=== PATIENT | female | born 1935 | race Caucasian/White ===

== ENCOUNTER 2018-11-12 13:42 | Emergency (ER) | payer MEDICARE, OTHER ==
[~2018-11-12] VITALS: Ht 162.6 cm; Wt 54.1 kg
[2018-11-12 15:05] LABS: CLARITY,URINE CLOUDY (Clear); COLOR,URINE YELLOW (Yellow); GLUCOSE, URINE NEGATIVE (Neg); KETONES,URINE NEGATIVE (Neg); LEUKOCYTE ESTERASE ,URINE LARGE (Neg); NITRITES, URINE POSITIVE (Neg); OCCULT BLOOD,URINE TRACE-INTACT (Neg); PH,URINE 5.5 (4.8-8.0); PROTEIN,URINE NEGATIVE (Neg); UA COLLECTION TYPE VOIDED; UROBILINOGEN,URINE 0.2 E.U/dL (0.2-1.0)
[2018-11-12 15:18] LABS: URINE AMPHETAMINE SCREEN NEGATIVE (Neg); URINE BARBITUATE SCREEN NEGATIVE (Neg); URINE BENZODIAZEPINES SCREEN NEGATIVE (Neg); URINE CANNABINOID SCREEN NEGATIVE (Neg); URINE COCAINE SCREEN NEGATIVE (Neg); URINE METHADONE SCREEN NEGATIVE (Neg); URINE OPIATE SCREEN NEGATIVE (Neg); URINE PHENCYCLIDINE SCREEN NEGATIVE (Neg)
[2018-11-12 15:18] LABS: ALANINE AMINOTRANSFERASE 27 U/L (12-78); ALBUMIN 3.7 G/DL (3.4-5.0); ALBUMIN/GLOBULIN RATIO 0.9 (1.1-1.5); ALKALINE PHOSPHATASE 92 IU/L (46-116); ANION GAP 13 (8-16); ASPARTATE AMINO TRANSFERASE 39 U/L (10-37); BILIRUBIN,TOTAL 0.5 MG/DL (0.1-1.0); BLOOD UREA NITROGEN 24 MG/DL (7-18); BUN/CREATININE RATIO 31.2 (6.6-38.0); CALCIUM 8.9 MG/DL (8.5-10.1); CHLORIDE 99 MMOL/L (99-107); CREATININE 0.77 MG/DL (0.40-0.90); GLUCOSE 101 MG/DL (70-104); POTASSIUM 3.7 MMOL/L (3.5-5.1); SODIUM 136 MMOL/L (135-145); TOTAL CARBON DIOXIDE 23.8 MMOL/L (24-32); TOTAL PROTEIN 7.9 G/DL (6.4-8.2); eGFR 72 ML/MIN
[2018-11-12 15:25] LABS: ETHANOL < 0.010 GM/DL (0.0-0.010)
[2018-11-12 15:28] LABS: BACTERIA,URINE 3+ /HPF (Neg); MUCUS STRANDS MODERATE /LPF (Neg); RBC,URINE 0-2 /HPF (0-2); SQUAMOUS EPITHELIAL CELL,UR MODERATE /LPF (FEW); WBC,URINE TNTC /HPF (0-4)
[2018-11-12 15:29] LABS: WBC CLUMPS,URINE MODERATE /HPF (NEGATIVE)
[2018-11-12 15:32] LABS: BASOPHILS # (AUTO) 0.1 X10'3 (0-0.2); BASOPHILS % (AUTO) 0.6 % (0-1); EOSINOPHILS # (AUTO) 0.1 X10'3 (0-0.9); EOSINOPHILS % (AUTO) 1.4 % (0-6); HEMATOCRIT 41.5 % (35.0-45.0); HEMOGLOBIN 13.6 g/dl (12.0-16.0); LYMPHOCYTES # (AUTO) 1.8 X10'3 (1.1-4.8); LYMPHOCYTES % (AUTO) 20.8 % (21-51); MEAN CORPUSCULAR HEMOGLOBIN 28.3 PG (27.0-31.0); MEAN CORPUSCULAR HGB CONC 32.9 g/dL (33.0-36.5); MEAN PLATELET VOLUME 10.3 FL (7.4-10.4); MONOCYTES # (AUTO) 0.7 X10'3 (0-0.9); MONOCYTES % (AUTO) 8.6 % (2-12); NEUTROPHILS # (AUTO) 5.7 X10'3 (1.8-7.7); NEUTROPHILS % (AUTO) 68.6 % (42-75); PLATELET COUNT 236 X10'3 (140-440); RED BLOOD COUNT 4.82 X10'6 (4.20-5.60); RED CELL DISTRIBUTION WIDTH 13.4 % (11.5-14.5); WHITE BLOOD COUNT 8.4 X10'3 (4.5-11.0)
[2018-11-12] MEDS ORDERED: normal saline 1000ML IV soln IV ONE (17:50)
[2018-11-12] MEDS ORDERED: CefTRIAXone 2gm/D5W 50ml 50 ML IV ONE (17:50)
--- NOTE | 2018-11-12 19:14 | NUR ---
Telepsych consult initiated, spoke with "Lesli"
--- NOTE | 2018-11-12 19:18 | NUR ---
Up to BRP with family.
[2018-11-12 19:28] VITALS: BP 152/94
--- NOTE | 2018-11-12 20:18 | NUR ---
Rec'd call from telepsych doctor, report endorsed.
[2018-11-12] MEDS ORDERED: CEPH500C5 PO (21:32)
--- NOTE | 2018-11-12 21:32 | NUR ---
[facility] report given to ERP
== END 2018-11-12 22:04 | disposition home or self-care (01) ==
LOC: ER 13:44
DX: N39.0 Urinary tract infection, site not specified (principal); F22 Delusional disorders; R41.0 Disorientation, unspecified
CPT/HCPCS: 36415; 70450; 80053; 80305; 80320; 81001; 84443; 85025; 87077; 87088; 96365; 99284; J0696; J7030

== ENCOUNTER 2018-11-14 14:42 | Emergency (ER) | payer MEDICARE, OTHER ==
[~2018-11-14] VITALS: Ht 162.6 cm; Wt 54.9 kg
[~2018-11-14 14:42] MED LIST: CEPH500C5 PO
[2018-11-14 14:49] VITALS: BP 151/63
[2018-11-14] MEDS ORDERED: QUET25TA PO (18:01)
== END 2018-11-14 18:22 | disposition home or self-care (01) ==
LOC: ER 14:42
DX: R44.3 Hallucinations, unspecified (principal); N39.0 Urinary tract infection, site not specified; F41.9 Anxiety disorder, unspecified; Z79.899 Other long term (current) drug therapy
CPT/HCPCS: 99284

== ENCOUNTER 2018-11-16 10:25 | Emergency (ER) | payer MEDICARE, OTHER ==
[~2018-11-16] VITALS: Ht 162.6 cm; Wt 47.0 kg
[~2018-11-16 10:25] MED LIST changes: +QUET25TA PO
--- NOTE | 2018-11-16 10:54 | NUR ---
AMBULATED TO ROOM WITH MARKO SAUCEDA AT HER SIDE. PATIENT A&OX4 BUT STATES HER MEMORY ISN'T GOOD IT ONCE ONES. SONS STATE SHE HASN'T BEEN EATING. PATIENT GIVEN FOOD AND STATES SHE WILL EAT IT.
--- NOTE | 2018-11-16 11:03 | NUR ---
telepsych contacted, cart 2 at bedside.
--- NOTE | 2018-11-16 11:21 | NUR ---
telepsyche in progress
[2018-11-16 11:26] LABS: BASOPHILS # (AUTO) 0.2 X10'3 (0-0.2); BASOPHILS % (AUTO) 1.7 % (0-1); EOSINOPHILS # (AUTO) 0.1 X10'3 (0-0.9); EOSINOPHILS % (AUTO) 0.9 % (0-6); HEMATOCRIT 42.2 % (35.0-45.0); HEMOGLOBIN 13.7 g/dl (12.0-16.0); LYMPHOCYTES # (AUTO) 1.3 X10'3 (1.1-4.8); MEAN CORPUSCULAR HEMOGLOBIN 28.4 PG (27.0-31.0); MEAN CORPUSCULAR HGB CONC 32.6 g/dL (33.0-36.5); MEAN PLATELET VOLUME 9.1 FL (7.4-10.4); MONOCYTES # (AUTO) 0.8 X10'3 (0-0.9); MONOCYTES % (AUTO) 7.9 % (2-12); NEUTROPHILS % (AUTO) 76.5 % (42-75); PLATELET COUNT 250 X10'3 (140-440); RED BLOOD COUNT 4.84 X10'6 (4.20-5.60); RED CELL DISTRIBUTION WIDTH 13.5 % (11.5-14.5); WHITE BLOOD COUNT 10.4 X10'3 (4.5-11.0)
[2018-11-16 11:41] LABS: ALANINE AMINOTRANSFERASE 21 U/L (12-78); ALBUMIN 3.4 G/DL (3.4-5.0); ALBUMIN/GLOBULIN RATIO 0.8 (1.1-1.5); ALKALINE PHOSPHATASE 85 IU/L (46-116); ANION GAP 10 (8-16); ASPARTATE AMINO TRANSFERASE 27 U/L (10-37); BILIRUBIN,TOTAL 0.5 MG/DL (0.1-1.0); BLOOD UREA NITROGEN 22 MG/DL (7-18); BUN/CREATININE RATIO 27.2 (6.6-38.0); CALCIUM 8.7 MG/DL (8.5-10.1); CHLORIDE 104 MMOL/L (99-107); CREATININE 0.81 MG/DL (0.40-0.90); ETHANOL < 0.010 GM/DL (0.0-0.010); GLUCOSE 117 MG/DL (70-104); POTASSIUM 3.7 MMOL/L (3.5-5.1); SODIUM 140 MMOL/L (135-145); TOTAL CARBON DIOXIDE 25.8 MMOL/L (24-32); TOTAL PROTEIN 7.6 G/DL (6.4-8.2); eGFR 68 ML/MIN
--- NOTE | 2018-11-16 12:55 | NUR ---
teleneuro consult called per Dr. Mcpherson. Cart 2 at bedside.
[2018-11-16] MEDS ORDERED: NO HOME MEDS (14:28)
--- NOTE | 2018-11-16 15:19 | NUR ---
Teleneuro in progress. Assited MD. Patient's family at bedside.
[2018-11-16] MEDS ORDERED: divalproex sod 125mg sprinkle cap PO STA (15:42)
[2018-11-16] MEDS ORDERED: LORazepam 2 mg/ml vial IV ONE (16:40)
--- NOTE | 2018-11-16 16:52 | NUR ---
PATIENT TO MRI.
[2018-11-16 16:56] LABS: CLARITY,URINE TURBID (Clear); COLOR,URINE YELLOW (Yellow); GLUCOSE, URINE NEGATIVE (Neg); KETONES,URINE 15 mg/dl (Neg); LEUKOCYTE ESTERASE ,URINE TRACE (Neg); NITRITES, URINE NEGATIVE (Neg); OCCULT BLOOD,URINE TRACE-INTACT (Neg); PH,URINE 5.5 (4.8-8.0); PROTEIN,URINE NEGATIVE (Neg); UROBILINOGEN,URINE 0.2 E.U/dL (0.2-1.0)
[2018-11-16 16:58] LABS: UA COLLECTION TYPE CLN CATCH MIDSTREAM
[2018-11-16 17:06] LABS: URINE AMPHETAMINE SCREEN NEGATIVE (Neg); URINE BARBITUATE SCREEN NEGATIVE (Neg); URINE BENZODIAZEPINES SCREEN NEGATIVE (Neg); URINE CANNABINOID SCREEN NEGATIVE (Neg); URINE COCAINE SCREEN NEGATIVE (Neg); URINE METHADONE SCREEN NEGATIVE (Neg); URINE OPIATE SCREEN NEGATIVE (Neg); URINE PHENCYCLIDINE SCREEN NEGATIVE (Neg)
[2018-11-16 17:19] LABS: SQUAMOUS EPITHELIAL CELL,UR MANY /LPF (FEW)
[2018-11-16 17:21] LABS: BACTERIA,URINE NONE SEEN /HPF (Neg); MUCUS STRANDS MANY /LPF (Neg); RBC,URINE 0-2 /HPF (0-2)
[2018-11-16 17:22] LABS: AMORPHOUS URATES 4+; CAL OXALATE CRYSTALS 1+ /HPF (NEGATIVE)
[2018-11-16] MEDS: divalproex sod 125mg sprinkle cap PO SCH (17:30)
--- NOTE | 2018-11-16 17:35 | NUR ---
PATIENT BACK FROM MRI. PATIENT VERY SEDATED FROM ATIVAN ADMINISTRATION. PATIENT TOLERATED MRI WELL. PATIENT PLACED ON 2 L NC DUE TO DESAT TO LOW 90% RA. PATIENT'S SPO2 IMPROVED TO 99% 2LNC.
--- NOTE | 2018-11-16 20:42 | NUR ---
FAMILY (SONS) TOOK PT'S GREEN PURSE HOME.
[2018-11-16] MEDS: QUEtiapine 25mg tablet PO SCH (20:56)
--- NOTE | 2018-11-16 21:39 | NUR ---
SLEEPING AFTER RECEIVING ATIVAN FOR MRI.
--- NOTE | 2018-11-16 23:28 | NUR ---
PT AWAKENED, AKSING WHAT TIME AND WHERE FAMILY IS WELL WHAT THE PLAN IS FOR HER. RE ORIENTED AND TOLD THAT [facility] WILL SEE HER IN AM.
--- NOTE | 2018-11-16 23:43 | NUR ---
UP AMB TO BR WITH ASSIST, PAL[place] WELL.
--- NOTE | 2018-11-17 01:22 | NUR ---
covered the patient up with 3 blankets as she was cool. She asked for her family. Told her it was 0130 and that everyone is sleeping. She understood. Encouraged her to sleep
--- NOTE | 2018-11-17 03:50 | NUR ---
Pt awake, took her to the bathroom to void and back to bed, tucked in. Oriented to time.
--- NOTE | 2018-11-17 05:42 | NUR ---
pt remains asleep
[2018-11-17] MEDS ORDERED: haloperidol lactate 5mg/ml inj IM ONE (08:25)
[2018-11-17] MEDS ORDERED: haloperidol lactate 5mg/ml inj ONE (08:28)
[2018-11-17] MEDS: divalproex sod 125mg sprinkle cap PO SCH ×3 (08:30→17:30)
--- NOTE | 2018-11-17 09:17 | NUR ---
pt was not cooperating while being transported in wheelchair and tired to jump out of wheelchair. pt taken to overflow
--- NOTE | 2018-11-17 10:30 | NUR ---
Received pt for admission from the Emergency Department. Pt is a 82 yo pt admitted with Dementia & Psychosis. Report given by DANGELO Grubbs who informed pt was brought into the Emergency Room by the pts sons (Kaylen & Ismael), who have been experiencing pt being a high elopement risk. Pt lives at home with her son Kaylen who is her primary caregiver. Pt received Ativan in the ER and Haldol 10mg IM approximately 20 minutes ago. Pt pulled out IV in the ER. This is pts 2nd visit to the ED (11/12 & 11/17). Humera reports pt grabs name tags off nurse's uniforms. Pt is on a regular diet, had a MRI Head, & Tele Psych Consult. Pts son Kaylen and pts brother (lives in the [place]) arrived to the ER at 1100 to meet with the pt at bedside. Will continue to assess and monitor dc needs.
--- NOTE | 2018-11-17 11:00 | NUR ---
Pts son Porter ([phone]) arrived to visit with his mom. Spoke with Ismael regarding recent attempts by pt for elopement from her home while her son was home caring for her. Ismael lives in [place], [place], and flew in yesterday when pt was here on obs and overnight stay to determine pt needs for services. Met with Cheyanne Null, Director, HIM, who brought down a medical record release for pt to sign so that son could get copies of H&P and Tele Neuro Consult and get Power of Waiter/Waitress Tourist Class to be able to have pt move near him in [place]. Pt interviewed by Cheyanne, and she refused to sign Medical Release of Records at this time. Pt states "I've signed things before for people and I won't do it again. Spoke with Ismael that he has an appointment with their area counselor in the morning at 11:00, and needs pt to sign these forms. Rajesh Cobos, Director of ED of son's information and attempt to have pt sign Medical Release with pts denial to sign at this time.
--- NOTE | 2018-11-17 11:24 | NUR ---
pt is talking with geriatric social work professor, with her son present, calm no s/s of distress
--- NOTE | 2018-11-17 11:33 | NUR ---
Tia with web content & social media manager just finished speaking with family and pt, she is working on setting up services for a career development engineer in her home, she will need a telepsych 'tatianna recommendation that she needs care due to dementia and also a chart note from ER doctor stating that she has dementia, the ER note does state this...son needs these documents to obtain POA for her finances. Chandrika, RN in charge of ER was present and is aware of patients issues
--- NOTE | 2018-11-17 17:25 | NUR ---
Pt's son Porter, son Kaylen, and pts brother here at pts bedside to get update on pt status, as well as approach pt regarding signature of Medical Record Release for Medical Care so pts son can make transportation arrangements and take over medical care for the patient to receive services now and in the future. Pts brother spoke to her at length, with pt continued to refused to sign Medical Release Form.
--- NOTE | 2018-11-17 19:33 | NUR ---
pt is sitting quietly with friend who is reading to her. pt refused depakote until tomorrow morning.
--- NOTE | 2018-11-17 20:28 | NUR ---
pt's friend Aysha left, pt is sleeping, rr 15, unlabored.
[2018-11-17] MEDS: QUEtiapine 25mg tablet PO SCH (21:00)
--- NOTE | 2018-11-17 21:11 | NUR ---
pt refused seroquel. pt is now sleeping on back. unlabored rr.
--- NOTE | 2018-11-17 22:01 | NUR ---
pt awakened for 5 minutes, was confused about where she was. reoriented pt and pt is now sleeping.
--- NOTE | 2018-11-17 22:30 | NUR ---
pt is awake and confused about where she is. pt is asking to make a phone call but I explained it's too late and to rest. pt is sitting up in bed now.
--- NOTE | 2018-11-17 23:23 | NUR ---
pt is sleeping on her back. rr 14, unlabored.
--- NOTE | 2018-11-18 05:15 | NUR ---
she is awake but quiet
--- NOTE | 2018-11-18 06:52 | NUR ---
patient awake, calm and lying in bed, respirations even, no distress, will continue to monitor.
--- NOTE | 2018-11-18 08:16 | NUR ---
patient up and ambulated safely with assistance to bathroom, no signs of distress, will continue to monitor.
[2018-11-18] MEDS: divalproex sod 125mg sprinkle cap PO SCH ×4 (08:30→20:51)
--- NOTE | 2018-11-18 08:45 | NUR ---
Spoke to patient regarding medical release form. patient states she does not want to sign because she is "afraid they will be mean to her." will continue to monitor.
--- NOTE | 2018-11-18 10:24 | NUR ---
patient currently asking where son is, states he is supposed to visit this am. patient calm, no signs of distress. will continue to monitor.
--- NOTE | 2018-11-18 11:30 | NUR ---
patient resting in bed, respirations even and unlabored. no signs of distress.
--- NOTE | 2018-11-18 12:40 | NUR ---
patient's son, Ismael, arrived, to speak with patient. Ismael states he found papers that appoint him POA for this patient. viscosity worker notified, along with the [facility] mental health worker.
--- NOTE | 2018-11-18 13:00 | NUR ---
Patient's other son, Kaylen, arrived. Patient's son, Ismael, spoke with social work therapist this afternoon as well as delma [facility] mental health worker.
--- NOTE | 2018-11-18 14:13 | NUR ---
Dr. Ferrari in to visit this patient to evaluate her.
--- NOTE | 2018-11-18 15:59 | NUR ---
Patient resting comfortably with brother at bedside, no signs of distress noted. patient calm.
--- NOTE | 2018-11-18 17:00 | NUR ---
Patient resting with son now at bedside, requested water for her haddad, no signs of distress, pt calm and pleasant.
--- NOTE | 2018-11-18 19:00 | NUR ---
The patient is resting on her bed her friend is at the bedside visiting with her and attempting to encourage her to eat. She is calm and pleasant when approached. She stated she is doing "so so. I get scared a lot" She was able to accuratelys state the month and year. She reports she has not been sleeping at home well and her appetite is also poor. She also stated that her concentration has been poor as well.
--- NOTE | 2018-11-18 20:28 | NUR ---
DAWOOD DAUGHTER PHONE NUMBER IS [phone] ASKED PT IF WE COULD GIVE HER INFO. PT SAID YES THAT WAS OK.
[2018-11-18] MEDS: QUEtiapine 25mg tablet PO SCH (20:49)
--- NOTE | 2018-11-18 22:25 | NUR ---
The patient currently appears to be asleep.
--- NOTE | 2018-11-19 00:08 | NUR ---
The patient is up wandering around and is disoriented to time and place.
[2018-11-19] MEDS ORDERED: LORazepam 2 mg/ml vial IM ONE (00:20)
--- NOTE | 2018-11-19 00:31 | NUR ---
Patient up walking in the hallway with staff when she suddenly bolted for the exit door. Numerous staff had to assist in getting her back to the unit. She was yelling and throwing objects that she could reach. Once back on the unit she calmed down fairly rapidly and was sitting calmly on her bed eating a snack. She pleaded not to have medication. Ativan ordered held at this time and was made aware. When asked what she was trying to do she stated that she did not know but that she was somewhat confused and was wanting to go home. Several attempts were made to move her to a less light and a quieter area of the ER but she has repeatedly declined.
--- NOTE | 2018-11-19 01:26 | NUR ---
The patient slept for a brief period but awakened and was gathering her items up and wanting to share her roses with peers who are sleeping. She was redirected. She was made aware of the time. She currently is on her bed reading magazines.
--- NOTE | 2018-11-19 02:27 | NUR ---
The patient began to wonder towards the exit and staff immediately went to redirect her and she became resistive to redirection and as she was passing the fire alarm she pulled the alarm. She then picked up a water pitcher with roses and threw it on the floor causing a large water spill. As staff was holding on to her so she would not slip in the water she crabbed a fire extinquisher hanging on the wall and threw it on the floor. IM ativan given that was ordered earlier
--- NOTE | 2018-11-19 03:00 | NUR ---
The patient appears to be asleep and currently is one to one with a staff member
--- NOTE | 2018-11-19 04:08 | NUR ---
The patient remains one to one with staff. She appears to be asleep
--- NOTE | 2018-11-19 05:14 | NUR ---
The patient currently appears to be sleeping
--- NOTE | 2018-11-19 08:05 | NUR ---
PATIENT'S SON, TALIB, CALLED FROM [place] FOR CONDITION REPORT. STATES HE FILED THE NECESSARY PAPERWORK FOR POA AND IS WAITING FOR COURT DECISION. STATES THAT HIS PLAN IS TO TAKE HIS MOTHER TO [place] TO LIVE WITH HIM, ONCE POA IS APPROVED BY COURT.
[2018-11-19] MEDS: divalproex sod 125mg sprinkle cap PO SCH ×4 (08:30→17:30)
--- NOTE | 2018-11-19 09:13 | NUR ---
BROTHER AT THE BEDSIDE. PATIENT IS UNCOOPERATIVE AND REFUSES MORNING DOSE OF DEPAKOTE SPRINKLES, STATING THAT IT IS BURNING HER MOUTH. CALMLY CONVERSATING WITH BROTHER.
--- NOTE | 2018-11-19 12:40 | NUR ---
UP WALKING AROUND ON UNIT WITH NURSE SUPERVISING. CALM AND COOPERATIVE AT PRESENT.
--- NOTE | 2018-11-19 13:16 | NUR ---
RELIEVING RN FOR LUNCH, PT IS RESTING QUIETLY ON BED, EATING LUNCH
--- NOTE | 2018-11-19 14:40 | NUR ---
PATIENT ALERT AND COOPERATIVE. MADE TC TO FRIEND, DAWOOD. NO DISTRESS NOTED AT THIS TIME.
--- NOTE | 2018-11-19 16:40 | NUR ---
BROTHER HERE TO VISIT. QUIET CONVERSATION BETWEEN PATIENT AND VISITOR. NO DISTRESS NOTED.
--- NOTE | 2018-11-19 17:50 | NUR ---
RESTING IN BED WITH SON AT THE BEDSIDE. CALM AND COOPERATIVE. CONDITION UNCHANGED FROM EARLIER ASSESSMENT.
--- NOTE | 2018-11-19 19:00 | NUR ---
Pt. sitting in bed, pleasant and animated, rr even and unlabored. Currently visiting with a friend.
--- NOTE | 2018-11-19 19:50 | NUR ---
Pt. helped to ambulate to the BR with the assistance of her friend and one staff member. Gait is steady, no c/o urinary frequency or pain.
[2018-11-19] MEDS: nitrofuran/nitrofuran macrocrysal 100 MG capsule PO SCH (20:10)
[2018-11-19] MEDS: QUEtiapine 25mg tablet PO SCH (20:10)
--- NOTE | 2018-11-19 20:30 | NUR ---
Pt. compliant with all medications this shift per encouragement from her friend. Medication education provided by this verse writer and pt. voices understanding. She accepted HS snack of applesauce with her ABT per UTI as ordered. Pt. presents as A&O, and admits that she does not remember a lot about her recent episode of confusion, but she realizes she made some poor choices during it. She denies any S/I, H/I, depression, or anxiety at this time. She is willing to go live with her son in [place] after he has everything in place for her. This verse writer ensured pt. of her safety and that staff would be with her all night, pt. resting comfortably at this time.
--- NOTE | 2018-11-19 21:13 | NUR ---
Pt. asleep on her back, HOB elevated, rr even and ulabored.
--- NOTE | 2018-11-19 23:05 | NUR ---
Pt. continues to sleep on her back with HOB elevated, appears to be resting comfortably
--- NOTE | 2018-11-20 01:03 | NUR ---
Pt. sleeping, rr even and unlabored, will continue to moitor.
--- NOTE | 2018-11-20 03:06 | NUR ---
Pt. sleeping on her rt. side at this time, will continue to monitor.
--- NOTE | 2018-11-20 05:05 | NUR ---
Pt. sleeping on her right side, rr even and unlabored.
--- NOTE | 2018-11-20 06:41 | NUR ---
Nursing Note: Pt laying on R side, eyes open, respirations even and unlabored, no S&S of distress.
[2018-11-20] MEDS: nitrofuran/nitrofuran macrocrysal 100 MG capsule PO SCH ×2 (08:06→20:13)
[2018-11-20] MEDS: divalproex sod 125mg sprinkle cap PO SCH ×3 (08:06→17:38)
--- NOTE | 2018-11-20 08:33 | NUR ---
Nursing Note: Pt sitting up to eat breakfast. She was compliant with medication administration. She requested phone to call her friend. She was able to provide phone number to call the friend. No S&S of distress, will continue to monitor.
--- NOTE | 2018-11-20 09:10 | NUR ---
Nursing Note: Pt's son called and spoke with pt. Pt calm with no signs of distress while speaking with son. Will continue to monitor.
--- NOTE | 2018-11-20 09:29 | NUR ---
Nursing Note: Pt sitting in bed reading a book. She is oriented to name and birthdate. She states she is at the "head place" and it is "1900." She is unable to say why she is here. She is cooperative and calm. Will continue to monitor.
--- NOTE | 2018-11-20 11:28 | NUR ---
Nurses Note: Pt laying in bed with her son at the bedside. Encouraged pt to get up to the restroom, she declined. No S&S of distress, will continue to monitor. Addendum: 11/20/18 at 1554 by PBROWN Amend: Pt's brother is at the bedside, not the pt's son.
--- NOTE | 2018-11-20 11:40 | NUR ---
Nursing Note: Pt up to [facility], assisted by her son and this tag writer. Pt's gait is mildly unsteady. Will continue to monitor. Addendum: 11/20/18 at 1555 by PBROWN Amend: The visitor was the pt's brother not the pt's son.
--- NOTE | 2018-11-20 13:23 | NUR ---
Nursing Note: Pt sitting up in bed reading a book. She was compliant with medication administration. No S&S of distress, will continue to monitor.
--- NOTE | 2018-11-20 14:01 | NUR ---
Nursing Note: Received phone call from Lacey Hannon who states she is the daughter of the pt's friend Karen Rascon. Asked pt if she would like to speak to the caller and the pt does not know who Karen Tarah or Lacey Hannon are. Caller left phone number for Karen Rascon [phone]. Will continue to monitor.
--- NOTE | 2018-11-20 14:49 | NUR ---
Nursing Note: Pt laying in bed reading a book. No S&S of distress, respirations even and unlabored, no S&S of distress. Will continue to monitor.
--- NOTE | 2018-11-20 15:43 | NUR ---
Nursing Note: Pt laying in bed with family member at the bedside. No S&S of distress, will continue to monitor.
--- NOTE | 2018-11-20 17:11 | NUR ---
Nursing Note: Pt laying in bed visiting with her brother at her bedside. No S&S of distress, will continue to monitor.
[2018-11-20] MEDS: QUEtiapine 25mg tablet PO SCH (20:14)
--- NOTE | 2018-11-21 01:15 | NUR ---
Pt awake in bed, reading a book quietly. No requests or c/o at this time. NAD.
--- NOTE | 2018-11-21 06:28 | NUR ---
Nursing Note: Pt laying in bed with eyes closed, appears asleep, respirations even and unlabored, no S&S of distress, will continue to monitor.
[2018-11-21] MEDS: divalproex sod 125mg sprinkle cap PO SCH ×3 (08:20→17:32)
[2018-11-21] MEDS: nitrofuran/nitrofuran macrocrysal 100 MG capsule PO SCH ×2 (08:20→20:17)
--- NOTE | 2018-11-21 09:59 | NUR ---
Nursing Note: Pt oriented A&Ox4. Encouraged pt to drink fluids. Pt sitting up reading a book. No S&S of distress, will continue to monitor.
--- NOTE | 2018-11-21 11:37 | NUR ---
Nursing Note: Pt laying in bed talking on the telephone. No S&S of distress, will continue to monitor.
--- NOTE | 2018-11-21 13:15 | NUR ---
Nursing Note: Pt sitting up in bed to eat lunch. She was compliant with medication administration. No S&S of distress, will continue to monitor.
--- NOTE | 2018-11-21 15:35 | NUR ---
Nursing Note: Pt laying in bed with visitor at bedside. No S&S of distress, will continue to monitor.
--- NOTE | 2018-11-21 18:13 | NUR ---
Nursing Note: Pt's son, Ismael called, pt gave permission for this administrative underwriter to talk to pt. Pt now talking to son on phone. No S&S of distress, will continue to monitor.
[2018-11-21] MEDS: QUEtiapine 25mg tablet PO SCH (20:18)
--- NOTE | 2018-11-22 02:45 | NUR ---
pt awake reading newspaper, and at nurses station
[2018-11-22] MEDS: nitrofuran/nitrofuran macrocrysal 100 MG capsule PO SCH ×2 (08:35→20:12)
[2018-11-22] MEDS: divalproex sod 125mg sprinkle cap PO SCH ×3 (08:35→17:31)
--- NOTE | 2018-11-22 09:43 | NUR ---
Pt. was on her way to the bathroom when the staff lowered the toilet seat which made a loud noise. Pt. got scared and refused to go into the bathroom.
--- NOTE | 2018-11-22 11:36 | NUR ---
Pt. lying supine with even and unlabored respirations. Spoke with son earlier on the phone.
--- NOTE | 2018-11-22 13:05 | NUR ---
Pt. son visiting.
--- NOTE | 2018-11-22 15:34 | NUR ---
Pt. yelling, picked up her water pitcher that was filled with juice and dropped in on the floor. Pt. seemed to become anxious when another pt. in bed 23 started to act up and needed security.
--- NOTE | 2018-11-22 16:21 | NUR ---
Pt. has two female visitors at this time. Pt. immediately calmed down when they arrived.
[2018-11-22] MEDS: QUEtiapine 25mg tablet PO SCH (20:12)
--- NOTE | 2018-11-22 20:40 | NUR ---
pt denies sucidal ideation. pt denies homicidal ideation. pt denies auditory hallucinations. will continue to monitor.
--- NOTE | 2018-11-22 22:36 | NUR ---
pt resting in bed, eyes closed. no signs of distress. will continue to monitor.
--- NOTE | 2018-11-23 02:13 | NUR ---
pt laying on her right side. she is reading her book. no signs of distress. calls nurse over at times to ask questions. will continue to monitor.
--- NOTE | 2018-11-23 04:54 | NUR ---
pt in bed resting, eyes closed. no signs of distress. unlabored and even respirations. will continue to monitor.
--- NOTE | 2018-11-23 07:30 | NUR ---
Pt. was awake at shift change this morning. Pt. is calm and looking through magazines.
[2018-11-23] MEDS: nitrofuran/nitrofuran macrocrysal 100 MG capsule PO SCH ×2 (08:06→20:21)
[2018-11-23] MEDS: divalproex sod 125mg sprinkle cap PO SCH ×3 (08:06→17:08)
--- NOTE | 2018-11-23 10:16 | NUR ---
Gladys business case analyst called. States she will have a naval surface fire support planner come and fax the requested medical records to the prison family has arranged for pt. to go to eventually.
--- NOTE | 2018-11-23 10:20 | NUR ---
Son at bedside.
--- NOTE | 2018-11-23 14:43 | NUR ---
Spa Attendant Gladys Mcghee called with update: Pt's son needs to contact pt's PMD to have the requested forms filled out that the halfway is requesting.
--- NOTE | 2018-11-23 15:21 | NUR ---
RN asked Dr. Rodriges to fill out required paperwork for pt.'s new half-way. CXR being obtained now to r/o TB as a PPD skin test would take 48 hours to process/read.
[2018-11-23] MEDS ORDERED: tuberculin, purif. prot. deriv. 5 units/0.1ml ID ONE (16:00)
--- NOTE | 2018-11-23 16:39 | NUR ---
PPD skin test administered to pt's LFA at [address] Rodriges's order.
--- NOTE | 2018-11-23 18:29 | NUR ---
Patient is sitting up on side of bed eating dinner w/o problem. She seems confused, but pleasant and her son is at the bedside. I will continue to monitor.
[2018-11-23] MEDS: QUEtiapine 25mg tablet PO SCH (20:21)
--- NOTE | 2018-11-24 03:22 | NUR ---
Patient continues to sleep for short periods of time and then wake up restless. She is confused and needs reorientation frequently. At times she either asks for her son or wants to call him. I will continue to monitor.
[2018-11-24] MEDS: nitrofuran/nitrofuran macrocrysal 100 MG capsule PO SCH ×2 (07:13→19:29)
[2018-11-24] MEDS: divalproex sod 125mg sprinkle cap PO SCH ×3 (07:13→17:25)
[2018-11-24] MEDS ORDERED: ROPIVAcaine 0.5% (5mg/ml) 30ml vial ONE (08:42)
[2018-11-24] MEDS ORDERED: ketorolac trometh. 30mg/ml inj. ONE (08:43)
--- NOTE | 2018-11-24 15:46 | NUR ---
THIS MORNING WENT WITH CAROLINE DANG, TO SEE PATIENT'S SON, JAMIE. JAMIE HAS BEEN STAYING AT PATIENT'S HOME CG. HE HAS HIS OWN HOME, AND STATES THAT HE CANNOT CONTINUE TO TAKE CARE OF PATIENT 21/04. PATIENT'S OTHER SON, LISY, LIVES IN [place], AND IS ATTEMPTING TO GET PATIENT PLACED IN ASSISTED LIVING THERE. PER JAMIE, IT IS CALLED [facility]. INTERNET SEARCH SHOWS IT IS [facility] AND HAS [facility]. THE FACILITY IS ASKING FOR TB CLEARANCE. PPD PLACED 11/23 AT 1628PM. IT CAN BE READ 11/25 AT 1628. PER JAMIE, LISY IS COMING TOMORROW, AND MAY BE PICKING UP PATIENT. CAROLINE, ALTON INVOLVED WITH COMMUNICATING WITH LISY.
--- NOTE | 2018-11-24 18:51 | NUR ---
GAVE REPORT TO DANGELO NORTH
--- NOTE | 2018-11-24 19:53 | NUR ---
PATIENT RESTING IN BED IN HALLWAY WITH DAUGHTER AT BEDSIDE. PATIENT GIVEN 1999 ANTIBIOTIC PO MEDICATION. 2099 SEROQUEL TO BE GIVEN SHORTLY. RECEIVED IN REPORT FROM DAY SHIFT RN THAT PATIENT REFUSED 1730 DEPAKOTE. PATIENT COMPLIANT WITH 1999 MEDICATION ADMINISTRATION.
[2018-11-24] MEDS: QUEtiapine 25mg tablet PO SCH (20:03)
--- NOTE | 2018-11-24 23:20 | NUR ---
Patient sleeping in bed. No needs or concerns at this time. Will continue to monitor.
--- NOTE | 2018-11-25 01:06 | NUR ---
Patient sleeping. No needs or concerns at this time. Will continue to monitor.
--- NOTE | 2018-11-25 02:48 | NUR ---
Patient sleeping. No changes.
--- NOTE | 2018-11-25 05:17 | NUR ---
Patient sleeping. No changes.
[2018-11-25 05:51] VITALS: BP 156/85
--- NOTE | 2018-11-25 08:19 | NUR ---
BREAKFAST TRAY PLACED AT BEDSIDE BUT PT IS STILL CURRENTLY SLEEPING
--- NOTE | 2018-11-25 09:32 | NUR ---
PT IS SLEEPING, RESPIRATIONS SPONTANEOUS, EVEN AND UNLABORED, NO S/S OF DISTRESS, DISCOMFORT OR AGITATION AT THIS TIME, PT HAS NOT BEEN SLEEPING WELL REPORTED BY ED SITTER STAFF, WILL ALLOW PT TO SLEEP AT THIS TIME AND EVALUATE AND MEDICATE PT WHEN SHE WAKES, WILL ALSO GIVE FOOD TO PT WHEN SHE IS AWAKE.
--- NOTE | 2018-11-25 11:06 | NUR ---
PT HAS WOKEN BRIEFLY A COUPLE OF TIMES BUT CONTINES TO SLEEP AT THIS TIME, RESPIRATIONS SPONTANEOUS, EVEN AND UNLABORED, NO S/S OF DISTRESS, DISCOMFORT OR AGITATION.
[2018-11-25] MEDS: divalproex sod 125mg sprinkle cap PO SCH ×2 (12:30→14:27)
--- NOTE | 2018-11-25 12:37 | NUR ---
RELIEVING RN FOR LUNCH, PT IS SLEEPING, RESP EVEN AND UNLABORED, HER FRIEND, RYLEE, CALLED AND WILL CALL BACK LATER
--- NOTE | 2018-11-25 12:49 | NUR ---
FAMILY AT BEDSIDE AND WOULD LIKE TO TAKE PT HOME TODAY, THEY WILL TALK WITH RN WHEN SHE RETURNS FROM BREAK
--- NOTE | 2018-11-25 13:03 | NUR ---
PT TWO SON'S AT BEDSIDE VISITING AND SPEAKING WITH HIM REP TO GET RECORDS THEY MAY HAVE PLACEMENT FOR HER IN [place]
--- NOTE | 2018-11-25 13:24 | NUR ---
DISCUSSED DISCHARGE STATUS WITH DR ALANIZ AND PT FAMILY, PT FAMILY TO RETURN TODAY AT 1630 THIS IS THE TIMEFRAME TO READ TB RESULTS, PT LEFT ARM NOTED A SMALL BRUISE WHERE TUBERCULIN GIVEN BUT NO REDNESS OR INDURATION NOTED, DR ALANIZ TO READ TB RESULTS AT 1630, PRINT DISCHARGE AND PRESCRIPTIONS AND SEND PT HOME WITH FAMILY THEY HAVE PLACEMENT IN [place] FOR THE PT.
--- NOTE | 2018-11-25 14:28 | NUR ---
PT IS AWAKE AND EATING, PT MEDICATED PER ORDERS. PT IS COOPERATIVE BUT A LITTLE GRUMPY
--- NOTE | 2018-11-25 15:12 | NUR ---
PT SITTING UP AT BEDSIDE READY A BOOK NOW, PT IS CALM AND COOPERATIVE, NO S/S OF DISTRESS, DISCOMFORT OR AGITATION AT THIS TIME.
[2018-11-25] MEDS ORDERED: QUET50TA PO (16:34)
[2018-11-25] MEDS ORDERED: DIVA125T2 PO (16:34)
--- NOTE | 2018-11-25 16:35 | NUR ---
DR ALANIZ AT BEDSIDE EVALUATED PT TB TEST NEGATIVE, PROVIDER TO PRINT DISHCARGE AND PRESCRIPTIONS, PT SONS ARE HERE TO BRING PT HOME, REBA TO GET PT BELONGINGS FOR PT TO CHANGE INTO HOME CLOTHES
== END 2018-11-25 17:03 | disposition home or self-care (01) ==
LOC: ER 10:25
DX: F03.90 Unspecified dementia, unspecified severity, without behavioral disturbance, psychotic disturbance, mood disturbance, and anxiety (principal); F22 Delusional disorders; F41.9 Anxiety disorder, unspecified
CPT/HCPCS: 36415; 70551; 80053; 80305; 80320; 81001; 82607; 82746; 84443; 85025; 96372; 96374; 99285; J1630; J2060

== ENCOUNTER 2019-08-28 09:45 | Emergency (ER) | payer MEDICARE ==
[~2019-08-28] VITALS: Ht 160 cm; Wt 54.5 kg
[~2019-08-28 09:45] MED LIST changes: -CEPH500C5 PO; +DIVA125T2 PO; +NO HOME MEDS; -QUET25TA PO; +QUET50TA PO
[2019-08-28 11:24] VITALS: BP 133/62
[2019-08-28] MEDS ORDERED: LIDOcaine 1% W/epiNEPHrine 1:100,000 20ml vial SQ ONE (12:05)
--- NOTE | 2019-08-28 12:49 | NUR ---
SPOKE TO JAMIE/SON,WILL TRANSPORT PT UPON DC,WILL BE HERE IN 15 MINUTES.
--- NOTE | 2019-08-28 13:09 | NUR ---
SPOKE TO FAMILY ABOUT WHO IS TAKING PT. TO FACILITY. STATED BROTHER IS AND THEY WILL CALL HIM TO FIND OUT AN ETA.
== END 2019-08-28 13:29 | disposition home or self-care (01) ==
LOC: ER 09:46
DX: S01.01XA Laceration without foreign body of scalp, initial encounter (principal); F41.9 Anxiety disorder, unspecified; Z79.899 Other long term (current) drug therapy; W18.39XA Other fall on same level, initial encounter; Y93.89 Activity, other specified; Y92.89 Other specified places as the place of occurrence of the external cause; Y99.8 Other external cause status
CPT/HCPCS: 12001; 70450; 99284